=== PATIENT | female | born 1960 | race Caucasian/White ===

== ENCOUNTER 2018-07-03 07:45 | Day surgery (SDC) | payer OTHER, BC ==
[2018-07-03] MEDS ORDERED: LIDOCAINE 4% SOLUTION 50 ML BTL (09:55)
[2018-07-03] MEDS ORDERED: MIDAZOLAM 1 MG/ML 2 ML INJ ×2 (10:52→10:53)
[2018-07-03] MEDS ORDERED: FENTAnyl 50 MCG/ML VIAL (10:53)
== END 2018-07-03 12:31 | disposition home or self-care (01) ==
LOC: GIL 07:45
DX: Z12.11 Encounter for screening for malignant neoplasm of colon (principal); K64.0 First degree hemorrhoids; K57.30 Diverticulosis of large intestine without perforation or abscess without bleeding; K29.50 Unspecified chronic gastritis without bleeding
CPT/HCPCS: 43239; 88305; 88312; 88313